=== PATIENT | female | born 1945 | race Caucasian/White ===

== ENCOUNTER 2017-05-11 08:59 | Inpatient (IN) | payer MEDICARE, OTHER ==
[~2017-05-11] VITALS: Ht 170.2 cm; Wt 54.0 kg
[~2017-05-11 08:59] MED LIST: AZEL6DRO2 EACHEYE; CLON-364 PO; LACT1CAP32 PO; LISI-167 PO; LURA20TA PO; ROSU5TAB PO; SIME180C4 PO; TRAM100T13 PO; TRAZ100T15 PO; ZOLP10TA PO
[2017-05-11] MEDS ORDERED: ASPI-621 PO (09:32)
[2017-05-11] MEDS ORDERED: LURA80TA PO (09:33)
[2017-05-11 09:34] LABS: HEMATOCRIT 43.7 % (34.6-47.8); HEMOGLOBIN 14.4 g/dL (11.7-16.4); WHITE BLOOD COUNT 7.5 x10^3/uL (3.4-10)
[2017-05-11] MEDS ORDERED: NAPR220T77 PO (09:36)
[2017-05-11 09:46] LABS: ASPARTATE AMINO TRANSFERASE 18 U/L (15-37); BLOOD UREA NITROGEN 13 mg/dL (7-18)
[2017-05-11 09:52] LABS: IS PT STATUS REG ER OR PRE ER? YES
[2017-05-11] MEDS ORDERED: ASPIRIN 81 MG TABLET CHEW PO ONE (10:30)
[2017-05-11] MEDS ORDERED: POLYETHYLENE GLYCOL 17 GM PACKET PO PRN (12:00)
[2017-05-11] MEDS ORDERED: DOCUSATE 100 MG CAPSULE PO PRN (12:00)
[2017-05-11] MEDS ORDERED: BISACODYL 10 MG SUPP PR PRN (12:00)
[2017-05-11] MEDS ORDERED: ACETAMINOPHEN 325 MG TABLET PO PRN (12:00)
[2017-05-11] MEDS ORDERED: ONDANSETRON 2MG/ML, 2ML IVPush PRN (12:00)
[2017-05-11] MEDS ORDERED: hydrALAzine 20 MG/ML, 1ML IVPush PRN (12:00)
[2017-05-11] MEDS ORDERED: OXYcodone IR 5MG TABLET PO PRN (12:00)
[2017-05-11] MEDS ORDERED: morphine SULFATE 10 MG/ML, 1ML IVPush PRN (12:00)
[2017-05-11] MEDS ORDERED: ENALAPRILAT 1.25 MG/ML, 2ML IVPush PRN (12:00)
[2017-05-11 13:00] VITALS: BP 135/74
[2017-05-11] MEDS ORDERED: NICOTINE 7 MG/24 HR PATCH.TD24 TD SCH (13:00)
[2017-05-11] MEDS ORDERED: OMNIPAQUE 350 MG/ML, 100ML BOTTLE ONE (13:25)
[2017-05-11] MEDS ORDERED: MULT-658 PO (13:51)
[2017-05-11] MEDS ORDERED: [UNRECOGNIZED DRUG - CODE] PO (13:51)
[2017-05-11 13:57] VITALS: BP 144/71
[2017-05-11] MEDS: LISINOPRIL 10 MG TABLET PO SCH (13:59)
[2017-05-11] MEDS: HEPARIN 5,000 UNITS/ML, 1ML SQ SCH ×2 (13:59→22:07)
[2017-05-11] MEDS: SENNA/DOCUSATE TABLET PO SCH (14:04)
[2017-05-11 16:59] LABS: IS PT STATUS REG ER OR PRE ER? NO
[2017-05-11 19:20] VITALS: BP 124/67
[2017-05-11] MEDS ORDERED: LURASIDONE 20 MG TABLET PO SCH (21:00)
[2017-05-11 23:41] LABS: IS PT STATUS REG ER OR PRE ER? NO
[2017-05-12 03:30] VITALS: BP 109/68
[2017-05-12 05:22] LABS: HEMATOCRIT 41.6 % (34.6-47.8); HEMOGLOBIN 13.7 g/dL (11.7-16.4); WHITE BLOOD COUNT 7.8 x10^3/uL (3.4-10)
[2017-05-12 05:28] LABS: ASPARTATE AMINO TRANSFERASE 17 U/L (15-37); BLOOD UREA NITROGEN 14 mg/dL (7-18)
[2017-05-12] MEDS: ASPIRIN 325 MG TABLET EC PO SCH ×3 (06:00→08:43)
[2017-05-12] MEDS: HEPARIN 5,000 UNITS/ML, 1ML SQ SCH (06:07)
[2017-05-12] MEDS ORDERED: ASPI-650 PO (07:11)
[2017-05-12 07:40] VITALS: BP 127/77
[2017-05-12] MEDS: LISINOPRIL 10 MG TABLET PO SCH (08:43)
[2017-05-12] MEDS: SENNA/DOCUSATE TABLET PO SCH (08:48)
[2017-05-12] MEDS ORDERED: AZELASTINE HCL 0.5% EACHEYE SCH (09:00)
== END 2017-05-12 11:03 | disposition home or self-care (01) | DRG 69 ==
LOC: ED 09:40 → EDIP 10:25 → 5SO 12:44 → DCLOUNGE 05-12 10:36
PROVIDERS: ADMIT Internal Medicine
DX: G45.9 Transient cerebral ischemic attack, unspecified (principal); I11.9 Hypertensive heart disease without heart failure; F25.0 Schizoaffective disorder, bipolar type; E78.5 Hyperlipidemia, unspecified; Z96.641 Presence of right artificial hip joint; F41.9 Anxiety disorder, unspecified; M19.90 Unspecified osteoarthritis, unspecified site; F25.1 Schizoaffective disorder, depressive type; Z79.82 Long term (current) use of aspirin; Z85.3 Personal history of malignant neoplasm of breast; Z87.891 Personal history of nicotine dependence; Z95.5 Presence of coronary angioplasty implant and graft; Z90.49 Acquired absence of other specified parts of digestive tract; Z90.11 Acquired absence of right breast and nipple; Z88.1 Allergy status to other antibiotic agents; Z88.0 Allergy status to penicillin; Z88.2 Allergy status to sulfonamides; Z88.8 Allergy status to other drugs, medicaments and biological substances; I25.119 Atherosclerotic heart disease of native coronary artery with unspecified angina pectoris
CPT/HCPCS: 36415; 70450; 70496; 70498; 70551; 71010; 80053; 80061; 81003; 83036; 83735; 84439; 84443; 84484; 85025; 85610; 93005; 93306; 93880; 99285; J1644; Q9967

== ENCOUNTER → 2017-05-31 | Outpatient (CLI) | payer MEDICARE, OTHER ==
[~2017-05-31] MED LIST changes: +ASPI-621 PO; +ASPI-650 PO; +LURA80TA PO; +MULT-658 PO; +NAPR220T77 PO; +OMNIPAQUE 350 MG/ML, 100ML BOTTLE ONE; +[UNRECOGNIZED DRUG - CODE] PO
== END | disposition home or self-care (01) ==
LOC: CFH 13:48
PROVIDERS: ATTEND Genetic Counselor, MS
DX: R59.9 Enlarged lymph nodes, unspecified (principal)
CPT/HCPCS: 70491; Q9967

== ENCOUNTER → 2017-07-15 | Outpatient (CLI) | payer MEDICARE, OTHER ==
[~2017-07-15] MED LIST changes: -OMNIPAQUE 350 MG/ML, 100ML BOTTLE ONE
== END | disposition home or self-care (01) ==
LOC: PETCFH 09:26
PROVIDERS: ATTEND Genetic Counselor, MS
DX: K76.89 Other specified diseases of liver (principal); R83.4 Abnormal immunological findings in cerebrospinal fluid; C50.919 Malignant neoplasm of unspecified site of unspecified female breast
CPT/HCPCS: 78815; A9552

== ENCOUNTER 2018-07-14 17:01 | Emergency (ER) | payer MEDICARE, OTHER ==
[~2018-07-14] VITALS: Ht 170.2 cm; Wt 51.8 kg
[~2018-07-14 17:01] MED LIST changes: -CLON-364 PO; +CLON0.5T11 PO; +TRAZ-137 PO; -TRAZ100T15 PO
[2018-07-14 17:06] VITALS: BP 168/85
== END 2018-07-14 19:19 | disposition home or self-care (01) ==
LOC: ED 19:08
DX: H34.8122 Central retinal vein occlusion, left eye, stable (principal); H54.62 Unqualified visual loss, left eye, normal vision right eye; I10 Essential (primary) hypertension; F25.9 Schizoaffective disorder, unspecified; F31.9 Bipolar disorder, unspecified; I25.2 Old myocardial infarction; Z85.3 Personal history of malignant neoplasm of breast
CPT/HCPCS: 99282; 99283